=== PATIENT | female | born 1965 | race Caucasian/White ===

== ENCOUNTER → 2016-09-14 | Outpatient (CLI) | payer OTHER ==
--- NOTE | 2016-09-14 11:55 | MA ---
Screening Digital Mammogram With Tomosynthesis Clinical Indications: Routine screening. Mother with breast cancer at age 69. Technique: Standard digital cephalocaudal and tomosynthesis mediolateral oblique projections are obt ained. The digital images were processed by the [employer] computer aided detection system. Comparison: March 2010 Breast density: B; There are scattered fibroglandular densities. Findings: CAD was reviewed. Small developing density lower right breast seen deep to the lower right areola. The remainder of the right and left breast are stable. Impression: Small developing density lower right breast. Recommendation: Spot compression view. If persistent, proceed to ultrasound for further characteriza tion and localization purposes. Please fax a written or electronic order for a right breast diagnostic mammogram and ultrasound to [phone]. BI-RADS 0: Needs additional imaging evaluation, right breast.. [facility] will send a result letter to the patient. Negative mammography should not preclude additional workup of a clinically suspicious finding. The patient's information is entered into a reminder system with a target due date for her next mammo gram.
== END ==
LOC: FIMAGING 11:05
DX: Z12.31 Encounter for screening mammogram for malignant neoplasm of breast (principal); R92.8 Other abnormal and inconclusive findings on diagnostic imaging of breast; Z80.3 Family history of malignant neoplasm of breast
CPT/HCPCS: G0202

== ENCOUNTER → 2016-09-26 | Outpatient (CLI) | payer OTHER ==
--- NOTE | 2016-09-26 12:08 | MA ---
Diagnostic Digital Mammogram Right Breast With iCAD Analysis Reason for examination: Evaluate nodular asymmetry noted on the oblique tomographic study and oblique reconstructed view from the screening study September 14, 2016 Technique: An oblique spot compression view is obtained. Also, a true lateral is performed. The exami nation is processed by the iCAD computer-aided detection system. Findings: The abnormality does not persist on diagnostic evaluation and it was probably related to herrera perimposition of normal glandular elements on the screening study. Impression: Negative diagnostic mammography. BI-RADS: 1. Recommendation: Resume routine mammographic screening in one year as long as physical examination is negative. A verbal report was given to the patient. [facility] with send a result letter.
== END ==
LOC: FIMAGING 11:25
PROVIDERS: ATTEND Family Medicine
DX: R92.8 Other abnormal and inconclusive findings on diagnostic imaging of breast (principal)
CPT/HCPCS: G0206